=== PATIENT | male | born 1975 | race Hispanic/Latino ===

== ENCOUNTER 2019-01-17 09:44 | Emergency (ER) | payer SELFPAY ==
[~2019-01-17 09:44] MED LIST: Iopamidol 370 76% 100 ML VIAL ONE
[2019-01-17] MEDS ORDERED: Ketorolac Tromethamine 30 MG/ML VIAL ONE (10:56)
[2019-01-17 11:05] LABS: #Basophils 0.1 thou/uL (0.0-0.2); #Eosinphils 0.5 thou/uL (0.0-0.7); #Lymphocytes 1.9 thou/uL (1.20-3.40); #Monocytes 0.4 thou/uL (0.11-0.59); %Basophils 1.4 % (0.0-1.0); %Eosinophils 6.3 % (0.0-10.0); %Lymphocytes 23.8 % (21.0-51.0); %Monocytes 4.9 % (0.0-10.0); %Neutrophils 63.6 % (42.0-75.0); Hemoglobin 16.4 g/dL (14.0-18.0); Mean Corpuscular HGB CONC 31.5 g/dL (32.0-36.0); Mean Corpuscular Hemoglobin 27.9 pg (27.0-31.0); Mean Corpuscular Volume 88.6 fL (78.0-98.0); Mean Platelet Volume 6.4 fL (7.4-10.4); Platelet Count 378 thou/uL (130-400); RBC Distribution Width 13.4 % (11.5-14.5); Red Blood Cell (RBC) Count 5.89 mill/uL (4.70-6.10); White Blood Cell (WBC) Count 7.8 thou/uL (4.8-10.8)
[2019-01-17 11:21] LABS: ALT (SGPT) 21 U/L (8-55); AST (SGOT) 21 U/L (5-34); Albumin 4.3 g/dL (3.5-5.0); Alkaline Phosphatase 99 U/L (40-150); Anion Gap 14 mmol/L (10-20); BUN (Urea Nitrogen) 21 mg/dL (8.9-20.6); Bilirubin, Total 0.3 mg/dL (0.2-1.2); Calc. Creatinine Clearance 0 mL/min (70-130); Calcium 9.5 mg/dL (7.8-10.44); Carbon Dioxide 25 mmol/L (22-29); Chloride 107 mmol/L (98-107); Estimated GFR-MDRD 56; Globulin 3.4 g/dL (2.4-3.5); Glucose 78 mg/dL (70-105); Potassium 4.5 mmol/L (3.5-5.1); Protein, Total 7.7 g/dL (6.0-8.3); Sodium 141 mmol/L (136-145)
[2019-01-17] MEDS ORDERED: Sulfameth/Trimethoprim DS 800-160mg TAB ONE (11:52)
[2019-01-17] MEDS ORDERED: Doxycycline 100 MG CAP ONE (11:52)
--- NOTE | 2019-01-17 20:19 | CT ---
CT OF THE UPPER EXTREMITY WITH CONTRAST: Date: 01-17-19 Technique: Spiral CT of the right hand and wrist was performed for evaluation of swelling around the index finger. There is a prior history of trauma. Comparison: None available. FINDINGS: There are erosive changes on each side of the second metacarpal phalangeal joint. A deep erosion is p resent in the articular surface at the base of the proximal phalanx of the index finger. There are er osions and irregularity of the second metacarpal head. There is some soft tissue swelling around it. I cannot tell if these findings are residual from trauma or if they may be erosive changes from osteo myelitis. Further studies would be needed to prove this, or if old studies exist for comparison, they could be quite helpful. The remainder of the bony structures showed no acute findings. There were a few tiny metallic densities in the soft tissues between the second and third metacarpal heads. IMPRESSION: Marked erosive changes on each side of the second MTP joint. Osteomyelitis must be presumed until pro luis otherwise, given the clinical history. There is a chance that this just could be the residual olesya nge from the prior trauma, but other studies, including prior studies would be needed to prove this. POS: HOME
== END 2019-01-17 11:57 | disposition home or self-care (01) ==
LOC: BURERS 09:44
DX: L08.9 Local infection of the skin and subcutaneous tissue, unspecified (principal)
CPT/HCPCS: 80053; 85025; 96374; J1885; Q9967

== ENCOUNTER 2019-06-12 11:54 | Emergency (ER) | payer SELFPAY ==
[2019-06-12] MEDS ORDERED: Ibuprofen 800 MG TAB ONE (12:47)
--- NOTE | 2019-06-12 20:44 | RAD ---
RIGHT FOOT THREE VIEWS: 06/12/2019 FINDINGS: No acute fracture is seen. There is a little irregularity at the base of the proximal phalanx of the great toe that is probably longstanding. IMPRESSION: No acute bony finding. POS: HOME
== END 2019-06-12 12:49 | disposition home or self-care (01) ==
LOC: BURERS 11:54
DX: M10.9 Gout, unspecified (principal); Z71.6 Tobacco abuse counseling
CPT/HCPCS: 36416; 99406

== ENCOUNTER 2019-10-28 12:06 | Emergency (ER) | payer SELFPAY | END 2019-10-28 14:00 | disposition home or self-care (01) | LOC: BURERS 12:06 | DX: M79.672 Pain in left foot (principal); M10.9 Gout, unspecified | CPT/HCPCS: 99281 ==

== ENCOUNTER 2022-05-14 16:57 | Emergency (ER) | payer SELFPAY ==
[2022-05-14] MEDS ORDERED: Ketorolac Tromethamine 30 MG/ML VIAL ONE (17:35)
[2022-05-14] MEDS ORDERED: predniSONE 20 MG TAB ONE (17:35)
== END 2022-05-14 17:45 | disposition home or self-care (01) ==
LOC: BURERS 16:57
DX: M54.50 Low back pain, unspecified (principal); F17.210 Nicotine dependence, cigarettes, uncomplicated
CPT/HCPCS: 96372; 99283; J1885; J7512